=== PATIENT | male | born 1980 | race Caucasian/White ===

== ENCOUNTER → 2019-05-28 | Outpatient (CLI) | payer BC ==
--- NOTE | 2019-05-28 15:27 | KCIC ---
EXAM: MRI left shoulder DATE: 05/28/2019 1:15 PM COMPARISON: None INDICATION: Left shoulder pain, fall, decreased range of motion TECHNIQUE: Multiplanar, multisequence MRI of the left shoulder was performed without contrast. FINDINGS: Mild AC joint degenerative changes are seen. Os acromiale is seen with mild associated edema along the interface, which can be seen with symptomatic os acromiale. No significant subacromial-subdeltoid bursal fluid. Rotator cuff muscle signal and bulk is normal. No fatty atrophy. No evidence for rotator cuff tendon tear. The extra articular long head biceps tendon is seen within the bicipital groove. Intra-articular long head biceps tendon is normal in signal and morphology. Evaluation for labral tear is limited on this arthrographic study. Within these constraints, no discrete labral tear is seen. No evidence for fracture or osteonecrosis. Articular cartilage is grossly preserved. IMPRESSION: 1. Edema along the os acromiale interface can be seen with symptomatic os acromiale. 2. No evidence for acute fracture. 3. No rotator cuff tear. Electronically signed by: Artur Gunter MD (05/28/2019 3:24 PM) [facility]
== END | disposition home or self-care (01) ==
LOC: KCIC MRI 12:39
PROVIDERS: ATTEND Registered Nurse
DX: M25.512 Pain in left shoulder (principal); R60.0 Localized edema; F40.240 Claustrophobia
CPT/HCPCS: 73221

== ENCOUNTER → 2020-04-08 | Outpatient (CLI) | payer BC ==
--- NOTE | 2020-04-08 14:39 | KCIC ---
Examination: MRI of the left knee without contrast HISTORY: History of locking of the knee, pain. COMPARISON: None available Technique: Multiplanar, multisequence MR imaging of the left knee were performed without contrast. Findings: The anterior cruciate ligament, posterior cruciate ligament appear intact. The medial meniscus, lateral meniscus appear intact. The medial collateral ligament is intact. Lateral collateral ligamentous complex including the fibular collateral ligament, biceps femoris tendon, popliteus tendon appear intact The extensor mechanism appears intact. The medial retinaculum, lateral retinaculum appears intact. Mild increased T2 signal identified anterior to the patella and infrapatellar tendon. Small knee joint effusion with tiny popliteal cyst. Mild joint space loss medial compartment. IMPRESSION: 1. Small knee joint effusion with tiny popliteal cyst. 2. Mild increased T2 signal anterior to the patella and infrapatellar tendon could be mild bursitis. Electronically signed by: Rod Weaver MD (04/08/2020 2:36 PM) [id number]
== END | disposition home or self-care (01) ==
LOC: KCIC MRI 13:48
PROVIDERS: ATTEND Physician Assistant
DX: M71.22 Synovial cyst of popliteal space [Baker], left knee (principal); M25.462 Effusion, left knee
CPT/HCPCS: 73721

== ENCOUNTER 2021-11-25 12:29 | Emergency (ER) | payer BC ==
[~2021-11-25] VITALS: Ht 180.3 cm; Wt 140.0 kg
--- NOTE | 2021-11-25 12:37 | PHYS DOC ---
General Adult EDM: Chief Complaint: LOWER BACK PAIN OR INJURY HPI: HPI: Patient is a 40 year old male who presents with report of low back pain. He is had this pain for over a month. He has pain radiating to his bilateral groin area and down both thighs. He reports that he feels tingling in the bilateral groin and perineal area. No complete loss of sensation. He denies peripheral motor weakness or paralysis. He denies abdominal pain, urinary symptoms. Denies fevers or chills. No fall, trauma or direct injury. He does a lot of heavy lifting and bending for his job. He works at a [employer], [employer]. He has had previous back issues, but they were never this severe. He has seen a chiropractor several times, without relief. He went to an urgent care this morning in [place], he was referred here for MRI. He denies any history of IV drug use. He has not yet seen his primary care physician, at the [facility]. Review of Systems: Review of Systems: Constitutional: Denies fever or chills. [] Respiratory: Denies cough or shortness of breath. [] Cardiovascular: Denies chest pain or edema. [] GI: Denies abdominal pain, nausea, vomiting, or diarrhea. No urine or stool incontinence. : Denies urinary symptoms or incontinence. No gross hematuria. Musculoskeletal: Low back pain Integument: Denies rash. [] Neurologic: Denies headache, focal weakness, paralysis. No incontinence. He does report tingling sensation of bilateral groin and perineal areas. Psychiatric: Denies depression or anxiety. [] Heart Score: C/O Chest Pain: No Risk Factors: Risk Factors: DM, Current or recent (<one month) smoker, HTN, HLP, family history of CAD, obesity. Risk Scores: Score 0 - 3: 2.5% MACE over next 6 weeks - Discharge Home Score 4 - 6: 20.3% MACE over next 6 weeks - Admit for Clinical Observation Score 7 - 10: 72.7% MACE over next 6 weeks - Early Invasive Strategies Physical Exam: PE: Constitutional: Well developed, well nourished, no acute distress, non-toxic appearance. [] HENT: Normocephalic, atraumatic Neck: Trachea is midline Cardiovascular:Heart rate regular rhythm, +2 radial and +2 posterior tibial pulses bilaterally Lungs & Thorax: Bilateral breath sounds clear to auscultation [] Abdomen: Abdomen soft, obese, nondistended, nontender to palpation. No palpable pulsatile mass. No CVA tenderness. No flank abdominal ecchymoses Skin: Warm, dry, no erythema, no rash. [] Back: No deformity. Diffuse midline lumbar tenderness. No step-offs. Pelvis is stable. No evidence of external trauma, ecchymosis, swelling, erythema. Extremities: No tenderness, no cyanosis, no clubbing, ROM intact, no edema. No calf tenderness Neurologic: He is awake, alert, oriented x3, no facial asymmetry. 5 out of 5 motor strength all 4 extremities. DTR 2+ out of 4 bilateral lower extremities. No foot drop. Sensation is grossly intact. Inguinal and perineal sensation is grossly intact. He is ambulatory, full weightbearing, no ataxia. Psychologic: Affect normal, judgement normal, mood normal. He is pleasant and cooperative EKG: EKG: [] Radiology/Procedures: Radiology/Procedures: IMAGING REPORT Signed PATIENT: RYANNE ORO ACCOUNT: [id number] : 1980 LOCATION: ER AGE: 40 SEX: M EXAM STATUS: PRE ER ORD. PHYSICIAN: APRIL GORDON DO REASON: LOW BACK PAIN WITH LEFT LEG RADICULOPATHY, NO KNOWN INJURY PROCEDURE: LUMBAR SPINE MIN 4V EXAM: Lumbar spine, 5 views. HISTORY: Left lower extremity radiculopathy. COMPARISON: None. FINDINGS: 5 views of the lumbar spine are obtained. There is 3 mm grade 1 anterolisthesis of L5 on S1. There is degenerative endplate remodeling and disc space narrowing with facet arthropathy at this level. There is no acute f racture. There is no pars defect. IMPRESSION: Degenerative change with associated mild listhesis at L5-S1. No acute osseous finding. Electronically signed by: Sebastian Lu MD (11/25/2021 1:33 PM) [id number] DICTATED and SIGNED BY: SEBASTIAN LU MD DATE: 11/25/21 [id number] IMAGING REPORT Signed PATIENT: RYANNE ORO ACCOUNT: [id number] : 1980 LOCATION: ER AGE: 40 SEX: M EXAM STATUS: REG ER ORD. PHYSICIAN: APRIL GORDON DO REASON: low back pain, paresthesias, concern for cauda equina PROCEDURE: LUMBAR SPINE WO CONTRAST MRI of the lumbar spine without contrast 11/25/2021 CLINICAL HISTORY: Low back pain. Paresthesias. TECHNIQUE: Unenhanced T1-weighted and T2-weighted sagittal and axial and inversion recovery sagittal images of the lumbar spine were obtained. FINDINGS: Comparison is made to radiographs of the lumbar spine dated 11/25/2021. Minimal S-shaped curvature of the thoracolumbar spine is seen. Degenerative signal changes are seen involving the L4-5 and L5-S1 discs. Loss of height of these discs is noted. Degenerative signal changes are seen within the marrow surrounding these discs. The conus medullaris is normal morphology, position, and signal characteristics. The AP diameter of the central spinal canal is narrowed in the mid and lower lumbar spine likely due to congenitally short pedicles. The L1-2 disc space is within normal limits. At the L2-3 disc space there is a mild to moderate generalized disc bulge. Superimposed on this disc bulge is a right lateral focal disc protrusion. This measures 3 mm in AP diameter. Degenerative changes are seen involving the facet joints bilaterally. There is mild ligament flavum hypertrophy bilaterally. There are small facet joint effusions bilaterally. These findings when combined with the narrow AP diameter of central spinal canal result in mild central spinal canal stenosis. Mild right neural foraminal stenosis is seen. The left neural fo ramen is patent. At the L3-4 disc space there is a mild generalized disc bulge. This is eccentric to the right. Degenerative changes are seen involving the facet joints bilaterally. There is mild ligament flavum hypertrophy bilaterally. There are small facet joint effusions bilaterally. There is prominence of posterior epidural fat. These findings when combined with the narrow AP diameter of the central spinal canal result in mild central spinal canal stenosis. No neural foraminal stenosis is seen. At the L4-5 disc space is a mild generalized disc bulge. Degenerative changes are seen involving the facet joints bilaterally. There is moderate ligamentum flavum hypertrophy bilaterally. There are small facet joint effusions bilaterally. These findings when combined result in mild central spinal canal stenosis. No neural foraminal stenosis is seen. At the L5-S1 disc space there is a mild generalized disc bulge. Superimposed on this disc bulge is a left paracentral focal disc protrusion. This measures 3 mm in AP diameter. Degenerative changes are seen involving the facet joints bilaterally. There is mild ligament flavum hypertrophy bilaterally. There is prominence of the posterior epidural fat. These findings when combined do not result in significant central spinal canal or neural foraminal stenosis. IMPRESSION: The changes of degenerative disc disease are seen throughout the lumbar spine. These findings when combined result in mild central spinal canal stenosis at L2-3, L3-4 and L4-5. Mild right neural foraminal stenosis is seen at L2-3. Electronically signed by: Bob Griffiths MD (11/25/2021 5:57 PM) [id number] DICTATED and SIGNED BY: BOB GRIFFITHS MD DATE: 11/25/21 [id number] 0 Course & Med Decision Making: Course & Med Decision Making Pertinent Labs and Imaging studies reviewed. (See chart for details) The patient is given IV Toradol. He reports this improved his pain. It took several hours to obtain MRI, secondary to obvious logistics issues. Ultimately MRI showed multilevel degenerative disc disease in the lumbar spine. No cauda equina, no cord injury. He has a nonfocal neurologic exam. I discussed the findings, differential diagnosis and plan of care with him. I recommend outpat ient follow-up with Dr. Linder, as well as follow-up with his primary care physician. I recommend no further chiropractic manipulation. He is comfortable with the plan for discharge home. Strict return precautions are given. No current indication for further invasive exams, imaging or inpatient admission at this time based on current clinical presentation. Dragon Disclaimer: Dragon Disclaimer: This electronic medical record was generated, in whole or in part, using a voice recognition dictation system. Departure Departure Impression: Primary Impression: Low back pain Qualified Codes: M54.50 - Low back pain, unspecified Additional Impressions: Lumbar radiculopathy Lumbar disc disease Spinal stenosis Qualified Codes: M48.00 - Spinal stenosis, site unspecified Disposition: HOME / SELF CARE / HOMELESS Condition: STABLE Referrals: [facility] (PCP) KUNAL LINDER MD Patient Instructions: Back Pain, Adult, Degenerative Disk Disease, Lumbosacral Radiculopathy Additional Instructions: Return to the ER for more severe pain, if you are acutely injured, if you develop a temperature 100.4 or higher, if you sustain any call motor weakness or paralysis, incontinence of urine or stool, or for any other concerns. Use the medication as directed/as needed. Please follow-up with Dr. Linder, call on Saturday to schedule an appointment. Also see your primary care physician. Scripts Oxycodone/Apap 5-325 (PERCOCET 5-325 MG TABLET ) 1 Each Tablet 1 EACH PO PRN Q6HR PRN for PAIN, #20 TAB pain Prov: APRIL GORDON DO 11/25/21 Prednisone (PREDNISONE) 50 Mg Tablet 1 TAB PO DAILY for 5 Days, #5 TAB Prov: APRIL GORDON DO 11/25/21 APRIL GORDON DO Nov 25, 2021 12:37
[2021-11-25] MEDS ORDERED: KETOROLAC 15 MG/ML VIAL. IVP ONE (13:00)
[2021-11-25 13:18] LABS: BASO # 0.1 x10^3/uL (0.0-0.2); BASO % 1 % (0-3); EOS # 0.1 x10^3/uL (0.0-0.7); EOS % 2 % (0-3); HEMATOCRIT 41.8 % (39.0-53.0); HEMOGLOBIN 14.1 g/dL (13.0-17.5); LYMPH # 2.5 x10^3/uL (1.0-4.8); LYMPH % 35 % (24-48); MEAN CORPUSCULAR HEMOGLOBIN 30 pg (25-35); MEAN CORPUSCULAR HGB CONC 34 g/dL (31-37); MEAN CORPUSCULAR VOLUME 88 fL (79-100); MONO # 0.6 x10^3/uL (0.0-1.1); MONO % 9 % (0-9); NEUT # 3.9 x10^3/uL (1.8-7.7); NEUT % 54 % (31-73); PLATELET COUNT 217 x10^3/uL (140-400); RED BLOOD COUNT 4.73 x10^6/uL (4.30-5.70); RED CELL DISTRIBUTION WIDTH 13.1 % (11.5-14.5); WHITE BLOOD COUNT 7.3 x10^3/uL (4.0-11.0)
[2021-11-25 13:28] LABS: CALCIUM 9.3 mg/dL (8.5-10.1); GFR 83.6; POTASSIUM 4.2 mmol/L (3.5-5.1)
--- NOTE | 2021-11-25 13:35 | RAD ---
EXAM: Lumbar spine, 5 views. HISTORY: Left lower extremity radiculopathy. COMPARISON: None. FINDINGS: 5 views of the lumbar spine are obtained. There is 3 mm grade 1 anterolisthesis of L5 on S1 . There is degenerative endplate remodeling and disc space narrowing with facet arthropathy at this l evel. There is no acute fracture. There is no pars defect. IMPRESSION: Degenerative change with associated mild listhesis at L5-S1. No acute osseous finding. Electronically signed by: Eunice Stanton MD (11/25/2021 1:33 PM) [id number]
[2021-11-25 14:08] LABS: BILIRUBIN,URINE NEGATIVE (NEG); CLARITY,URINE CLEAR; COLOR,URINE YELLOW
[2021-11-25 14:09] LABS: NITRITE,URINE NEGATIVE (NEG); PROTEIN,URINE NEGATIVE (NEG-TRACE); UROBILINOGEN,URINE 0.2 mg/dL (0.2 mg/dL)
[2021-11-25 14:11] LABS: BACTERIA,URINE 0 /HPF (0-FEW); RBC,URINE OCC /HPF (0-2); WBC,URINE OCC /HPF (0-4)
[2021-11-25 17:00] VITALS: BP 134/84
--- NOTE | 2021-11-25 18:00 | RAD ---
MRI of the lumbar spine without contrast 11/25/2021 CLINICAL HISTORY: Low back pain. Paresthesias. TECHNIQUE: Unenhanced T1-weighted and T2-weighted sagittal and axial and inversion recovery sagittal images of the lumbar spine were obtained. FINDINGS: Comparison is made to radiographs of the lumbar spine dated 11/25/2021. Minimal S-shaped curvature of the thoracolumbar spine is seen. Degenerative signal changes are seen i nvolving the L4-5 and L5-S1 discs. Loss of height of these discs is noted. Degenerative signal change s are seen within the marrow surrounding these discs. The conus medullaris is normal morphology, posi tion, and signal characteristics. The AP diameter of the central spinal canal is narrowed in the mid and lower lumbar spine likely due to congenitally short pedicles. The L1-2 disc space is within normal limits. At the L2-3 disc space there is a mild to moderate generalized disc bulge. Superimposed on this disc bulge is a right lateral focal disc protrusion. This measures 3 mm in AP diameter. Degenerative kitchen es are seen involving the facet joints bilaterally. There is mild ligament flavum hypertrophy bilater ally. There are small facet joint effusions bilaterally. These findings when combined with the narrow AP diameter of central spinal canal result in mild central spinal canal stenosis. Mild right neural foraminal stenosis is seen. The left neural foramen is patent. At the L3-4 disc space there is a mild generalized disc bulge. This is eccentric to the right. Degene rative changes are seen involving the facet joints bilaterally. There is mild ligament flavum hypertr ophy bilaterally. There are small facet joint effusions bilaterally. There is prominence of posterior epidural fat. These findings when combined with the narrow AP diameter of the central spinal canal r esult in mild central spinal canal stenosis. No neural foraminal stenosis is seen. At the L4-5 disc space is a mild generalized disc bulge. Degenerative changes are seen involving the facet joints bilaterally. There is moderate ligamentum flavum hypertrophy bilaterally. There are smal l facet joint effusions bilaterally. These findings when combined result in mild central spinal canal stenosis. No neural foraminal stenosis is seen. At the L5-S1 disc space there is a mild generalized disc bulge. Superimposed on this disc bulge is a left paracentral focal disc protrusion. This measures 3 mm in AP diameter. Degenerative changes are s een involving the facet joints bilaterally. There is mild ligament flavum hypertrophy bilaterally. Th ere is prominence of the posterior epidural fat. These findings when combined do not result in signif icant central spinal canal or neural foraminal stenosis. IMPRESSION: The changes of degenerative disc disease are seen throughout the lumbar spine. These find ings when combined result in mild central spinal canal stenosis at L2-3, L3-4 and L4-5. Mild right ne ural foraminal stenosis is seen at L2-3. Electronically signed by: Bob Griffiths MD (11/25/2021 5:57 PM) [id number]
[2021-11-25] MEDS ORDERED: PRED50TA PO (18:53)
[2021-11-25] MEDS ORDERED: OXYC1TAB15 PO (18:53)
== END 2021-11-25 19:10 | disposition home or self-care (01) ==
LOC: ER 12:29
DX: M54.16 Radiculopathy, lumbar region (principal); M48.07 Spinal stenosis, lumbosacral region
CPT/HCPCS: 36415; 72110; 72148; 80048; 81001; 85025; 96374; 99285; J1885